=== PATIENT | female | born 1975 | race Two or more races ===

== ENCOUNTER 2024-09-11 08:09 | Day surgery (SDC) | payer MEDICAID ==
[2024-09-06 06:28] LABS: Basophils # (auto) 0 10 ^3/uL (0-0.2); Basophils % (auto) 0.7 % (0.0-2.0); Eosinophils # (auto) 0.1 10 ^3/uL (0-0.8); Eosinophils % (auto) 2.2 % (0.0-7.0); Hematocrit 37.2 % (36.0-46.0); Hemoglobin 12.4 g/dL (12.2-16.2); Lymphocytes # (auto) 1.4 10 ^3/uL (0.4-5.4); Lymphocytes % (auto) 27.7 % (10.0-50.0); Mean Corpuscular Hgb Conc. 33.3 g/dL (32.0-36.0); Mean Corpuscular Volume 90.1 fL (80.0-100.0); Monocytes # (auto) 0.3 10 ^3/uL (0-1.3); Monocytes % (auto) 6.4 % (0.0-12.0); Neutrophils # (auto) 3.2 10 ^3/uL (1.6-8.6); Platelet Count (auto) 280 10^3/uL (140-450); Red Blood Cells 4.12 10^6/uL (4.0-5.20); Red Cell Distribution Width 14.8 % (11.8-14.3); White Blood Cell 5.1 10^3/uL (4.4-10.8)
[2024-09-06 06:44] LABS: Alanine Aminotransferase 18 U/L (7-40); Albumin 3.9 g/dL (3.2-4.8); Alkaline Phosphatase 65 U/L (46-116); Anion Gap 7 (5-15); Aspartate Aminotransferase 19 U/L (13-40); BUN/Creatinine Ratio 14.3 (10.0-20.0); Blood Urea Nitrogen 11 mg/dL (9-23); Carbon Dioxide 20 mmol/L (20-31); Potassium 3.9 mmol/L (3.5-5.1); Sodium 137 mmol/L (136-145); Total Protein 6.7 g/dL (5.7-8.2)
[2024-09-06 06:48] LABS: Bilirubin, Total 0.3 mg/dL (0.2-1.0); Calcium 8.6 mg/dL (8.7-10.4); Chloride 110 mmol/L (98-107); Glucose 118 mg/dL (74-106)
[2024-09-06 06:56] LABS: INR 0.91 (0.9-1.15); Partial Thromboplastin Time 26.2 SEC (24.5-34.5); Prothrombin Time 9.7 sec (9.3-11.8)
[~2024-09-11] VITALS: Ht 157.5 cm; Wt 61.2 kg
[~2024-09-11 08:09] MED LIST: FERR1TAB36 PO; FLUMAZENIL 0.1 MG/ML INJ 10ML MDV IV ONE; LIDOCAINE VISCOUS 2% 15ML UD ONE; NALOXONE HCL 0.4 MG/ML VIAL ONE; PANT1INJ3 IV; SODIUM CHLORIDE LOCK 10 ML ONE; diphenhdrAMINE HCL 50 MG/1 ML VL ONE
[2024-09-11 10:04] VITALS: PULSE 62; RESP 12; O2SAT 100
[2024-09-11] MEDS: fentaNYL CITRATE 100 MCG/2 ML VL ONE (10:07)
[2024-09-11] MEDS: MIDAZOLAM HCL 5 MG/ML-1ML VIAL ONE (10:07)
[2024-09-11] MEDS: MIDAZOLAM HCL 2MG/2ML 2ml VIAL (1mg/ml) ONE (10:13)
[2024-09-11 10:25] VITALS: PULSE 72; RESP 12; TEMP 97.5; O2SAT 100
[2024-09-11 11:25] VITALS: BP 122/75; PULSE 69; RESP 13; O2SAT 97
--- NOTE | 2024-09-12 13:20 | DVHNC2 ---
Procedure - PROCEDURE DATE: September 11, 2024 SURGEON: Tasha Scott MD PROCEDURE PERFORMED: 1. Esophagogastroduodenoscopy with biopsy under moderate sedation PRE-PROCEDURE DIAGNOSIS: 1. Chronic GERD refractory to treatment 2. History of a hiatal hernia POSTPROCEDURE DIAGNOSIS: 1. Severe erosive esophagitis mid to distal esophagus, with ulceration 2. 6 cm hiatal hernia 3. Mild gastritis 4. Normal duodenum INDICATIONS FOR PROCEDURE: The patient is a 48-year-old female with GERD refra ctory the treatment and a history of hiatal hernia Sedation given: 7 mg of Versed IV and 100 mcg of fentanyl IV were given in incremental doses DETAILS OF THE PROCEDURE: Informed consent was obtained after risks, benefits, and alternatives, were discussed at length with the patient. Consent was given for the procedures as well as for sedation. The patient was placed in left lateral decubitus position. An Olympus endoscope was inserted into the oropharynx and advanced into the esophagus, then into the stomach, then into the duodenal bulb in the duodenum. The scope was then withdrawn and mucosa carefully evaluated. Retained secretions were washed off or suctioned. The duodenal bulb and duodenum were normal. The scope was then withdrawn. The stomach showed mild gastritis, biopsies were taken of the body and antrum and sent for pathology. Retroflexed view showed a large hiatal hernia. The scope was then withdrawn. The patient had a 6 cm hiatal hernia from 28-34 cm. The patient had an irregular Z-line was at 28 cm with severe ulceration and inflammation in the mid to distal esophagus. Biopsies were taken and sent for pathology. The scope was then withdrawn and the procedure completed. The patient tolerated the procedure well. IMPRESSION: 1. Severe erosive esophagitis with ulceration starting from 28 cm 2. 6 cm hiatal hernia 3. Mild erosive gastritis RECOMMENDATIONS: 1. Follow up in GI clinic for procedure and pathology results 2. Anti-reflux precautions, weight loss, elevate the head of bed, avoid alcohol, chocolate, spicy food, tobacco, citrus, large meals before bedtime, greasy food. 3. Consider referral to surgery for fundoplication 4. Patient should be on a proton pump inhibitor daily to twice daily 30 minutes before meals 5. Consider adding Carafate 6. Avoid aspirin, NSAIDs, and anticoagulants 7. Repeat EGD in two months to ensure healing and further evaluation of the esophagus to rule out Presley's esophagus or any other abnormalities ABDELKARIM,TASHA Z MD Sep 12, 2024 13:20
== END 2024-09-11 11:25 | disposition home or self-care (01) ==
LOC: GI 08:09
PROVIDERS: ATTEND Specialist
DX: K21.00 Gastro-esophageal reflux disease with esophagitis, without bleeding (principal); K29.50 Unspecified chronic gastritis without bleeding; K22.10 Ulcer of esophagus without bleeding; K44.9 Diaphragmatic hernia without obstruction or gangrene; Z79.899 Other long term (current) drug therapy; Z86.2 Personal history of diseases of the blood and blood-forming organs and certain disorders involving the immune mechanism; Z98.51 Tubal ligation status
CPT/HCPCS: 36415; 43239; 80053; 84702; 85025; 85610; 85730; 88305; 88312; 88342; J2250; J3010; J7030; 99152